=== PATIENT | male | born 1940 | race Caucasian/White ===

== ENCOUNTER 2017-06-21 18:15 | Inpatient (IN) | payer MEDICARE, BC ==
[~2017-06-21] VITALS: Ht 175.3 cm; Wt 71.9 kg
[~2017-06-21 18:15] MED LIST: ASPIRIN E.C. 8181 MG PO; FE-TABS325 MG PO; FLOMAX 0.40.4 MG/CAP PO; FOLIC ACID 40400 MCG PO; NORCO 325 MG-51 TAB PO; PRINIVIL5 MG PO; TERAZOSIN HCL5 MG PO; ULTRAM 50MG TAB50 MG PO; VITAMIN B-150 MG PO; VITAMIN C PO; VITAMIN C500 MG PO
[2017-06-21 19:08] VITALS: BP 133/86; PULSE 79; TEMP 98.4
[2017-06-21 20:04] LABS: BASO % 0.4 % (0.0-2.0); EOS # 0.1 (0.0-0.7); EOS % 0.9 % (0-4.0); GRAN # 7.6 (1.4-6.5); GRAN % 78.4 % (42.2-75.2); HEMATOCRIT 39.2 % (42.0-52.0); HEMOGLOBIN 13.3 g/dl (13.5-18.0); LYMPH # 1.2 (1.2-3.4); LYMPH % 11.9 % (20.0-51.0); MEAN CELL VOLUME 87 fl (80.0-100.0); MEAN CORPUSCULAR HEMOGLOBIN 29 pg (27.0-31.0); MEAN CORPUSCULAR HGB CONC 34 g/dl (33.0-37.0); MEAN PLATELET VOLUME 10.2 fl (7.4-10.4); MONO # 0.8 (0.1-0.6); MONO % 8.1 % (1.7-9.3); PLATELET COUNT 179 K/mm3 (130-400); RED BLOOD COUNT 4.52 M/mm3 (4.20-5.60); REDCELL DISTRIBUTION WIDTH-CV 13.2 % (11.5-14.5)
[2017-06-21 20:07] LABS: CALCIUM 8.9 mg/dL (8.4-10.2); CREATININE, serum 0.98 mg/dL (0.66-1.25); POTASSIUM 4.4 mmol/L (3.4-5.0)
[2017-06-21 22:00] VITALS: BP 117/57; PULSE 72
[2017-06-21 23:59] VITALS: BP 103/53; PULSE 68; TEMP 98.2
[2017-06-22 02:24] VITALS: BP 99/50; PULSE 62
[2017-06-22 04:09] VITALS: BP 98/48; PULSE 58; TEMP 98.5
[2017-06-22 06:20] VITALS: BP 108/67; PULSE 64
[2017-06-22 08:21] VITALS: BP 94/55; PULSE 63; TEMP 98.8
[2017-06-22 11:13] VITALS: BP 104/63; PULSE 62; TEMP 98.2
[2017-06-22] MEDS ORDERED: TYLENOL 500MG500 MG PO (14:58)
[2017-06-22] MEDS ORDERED: NORCO 325 MG-51 TAB PO (14:59)
== END 2017-06-22 15:53 | disposition home or self-care (01) | DRG 87 ==
LOC: COL.RAD 18:15 → MEDICAL 19:08
PROVIDERS: Internal Medicine
DX: S06.5X0A Traumatic subdural hemorrhage without loss of consciousness, initial encounter (principal); W20.8XXA Other cause of strike by thrown, projected or falling object, initial encounter; I10 Essential (primary) hypertension
CPT/HCPCS: 99223-AI; 99238

== ENCOUNTER → 2017-06-25 | Outpatient (CLI) | payer MEDICARE, BC ==
[~2017-06-25] MED LIST changes: +TYLENOL 500MG500 MG PO
== END ==
LOC: COL.RAD 12:41
DX: I62.00 Nontraumatic subdural hemorrhage, unspecified (principal)

== ENCOUNTER → 2017-06-29 | Outpatient (CLI) | payer MEDICARE, BC | LOC: COL.VAS 08:18 | DX: I08.3 Combined rheumatic disorders of mitral, aortic and tricuspid valves (principal) ==

== ENCOUNTER 2017-11-17 16:55 | Day surgery (SDC) | payer MEDICARE, BC ==
[~2017-11-17] VITALS: Ht 172.7 cm; Wt 71.8 kg
[2017-11-17] VITALS (7 sets, daily range): BP systolic 116–149; BP diastolic 69–89; PULSE 58–97
[2017-11-17] MEDS ORDERED: PRINIVIL5 MG PO (17:18)
[2017-11-17] MEDS ORDERED: ASPIRIN 81M81 MG/TA2 PO (17:18)
[2017-11-17] MEDS ORDERED: HYTRIN 5MG C5 MG/CAP PO (17:18)
[2017-11-17 17:29] LABS: BASO % 0.4 % (0.0-2.0); EOS # 0.1 (0.0-0.7); GRAN # 6.7 (1.4-6.5); GRAN % 82.3 % (42.2-75.2); HEMATOCRIT 40.2 % (42.0-52.0); HEMOGLOBIN 13.9 g/dl (13.5-18.0); LYMPH # 0.8 (1.2-3.4); MEAN CELL VOLUME 85 fl (80.0-100.0); MEAN CORPUSCULAR HEMOGLOBIN 30 pg (27.0-31.0); MEAN CORPUSCULAR HGB CONC 35 g/dl (33.0-37.0); MEAN PLATELET VOLUME 9.6 fl (7.4-10.4); MONO # 0.5 (0.1-0.6); MONO % 5.9 % (1.7-9.3); PLATELET COUNT 210 K/mm3 (130-400); RED BLOOD COUNT 4.71 M/mm3 (4.20-5.60); REDCELL DISTRIBUTION WIDTH-CV 13.4 % (11.5-14.5)
[2017-11-17 17:40] LABS: ALBUMIN 4.2 gm/dL (3.5-5.0); BILIRUBIN,TOTAL 0.5 mg/dL (0.0-1.0); CALCIUM 9.4 mg/dL (8.4-10.2); CREATININE, serum 0.97 mg/dL (0.66-1.25); TOTAL PROTEIN 7.1 gm/dL (6.4-8.2)
[2017-11-17] MEDS ORDERED: COLACE 100100 MG/CAP PO (19:24)
[2017-11-17] MEDS ORDERED: NORCO 325 MG-51 TAB PO (19:25)
[2017-11-17] MEDS ORDERED: MOTRIN 600600 MG/TAB PO (19:25)
[2017-11-18 00:45] VITALS: BP 116/69; PULSE 62
[2017-11-18 04:00] VITALS: BP 105/75; PULSE 94; TEMP 98
[2017-11-18 07:54] VITALS: BP 110/67; PULSE 56; TEMP 98.5
== END 2017-11-18 13:24 | disposition home or self-care (01) ==
LOC: COL.ER 16:55 → SDCO 18:29 → SURG 21:21 → SDCO 11-18 13:24
PROVIDERS: Emergency Medicine
DX: S41.112A Laceration without foreign body of left upper arm, initial encounter (principal); I10 Essential (primary) hypertension; M19.041 Primary osteoarthritis, right hand; M19.042 Primary osteoarthritis, left hand; N40.0 Benign prostatic hyperplasia without lower urinary tract symptoms; F17.220 Nicotine dependence, chewing tobacco, uncomplicated; Z85.828 Personal history of other malignant neoplasm of skin; Z96.653 Presence of artificial knee joint, bilateral; Z79.82 Long term (current) use of aspirin
CPT/HCPCS: OP; J2250; J2270; J2704; J2795; J3010; J7030; J7120

== ENCOUNTER 2019-04-05 11:23 | Inpatient (IN) | payer MEDICARE, BC ==
[~2019-04-05] VITALS: Ht 172.7 cm; Wt 70.4 kg
[~2019-04-05 11:23] MED LIST changes: +ASPIRIN 81M81 MG/TA2 PO; +COLACE 100100 MG/CAP PO; +HYTRIN 5MG C5 MG/CAP PO; +MOTRIN 600600 MG/TAB PO
[2019-05-11] VITALS (13 sets, daily range): BP systolic 111–131; BP diastolic 63–75; PULSE 52–63; TEMP 97.8–98.1
[2019-05-11] MEDS ORDERED: MOTRIN 200200 MG/TAB PO (03:51)
[2019-05-11] MEDS ORDERED: LUTEIN20 M1 PO (03:52)
[2019-05-11] MEDS ORDERED: VITAMIN C500 MG PO (03:53)
[2019-05-11] MEDS ORDERED: REFRESH PLUS 00.4 M1 OP (03:54)
[2019-05-11] MEDS ORDERED: NATURAL IRON65 MG PO (03:56)
[2019-05-11] MEDS ORDERED: EPA FISH OIL1 SGL PO (03:56)
[2019-05-11] MEDS ORDERED: FOLIC ACID 11 MG/TA1 PO (03:57)
--- NOTE | 2019-05-11 10:44 | NUR ---
Brought to room via bed by PACU staff. Opens eyes when name called out. Alert and oriented x4. Left arm in immobilizer. Patient denies pain or ability to feel or move left fingers/hand. Cap refill to left hand <3 seconds, skin pink and warm. in room with the patient. Denies needs at this time.
--- NOTE | 2019-05-11 10:54 | NUR ---
Patient has left shoulder block. Still not able to feel or move left fingers/hand.
--- NOTE | 2019-05-11 11:24 | NUR ---
Patient has left shoulder block. Still unable to feel or move left finger and hand.
--- NOTE | 2019-05-11 11:25 | NUR ---
Lying in bed with eyes closed. Opens eyes when name called out. Denies pain. Has left shoulder block so still not able to move or feel left fingers/hand. Patient falls back asleep. in room with the patient.
--- NOTE | 2019-05-11 11:56 | NUR ---
Resting in bed with eyes closed. No signs or symptoms of discomfort noted. Left arm remains in immobilizer. Has left shoudler block so still not able to feel or move left fingers or hand.
--- NOTE | 2019-05-11 13:00 | NUR ---
Lying in bed with eyes closed. Resp even and unlabored. No signs or symptoms of discomfort noted.
--- NOTE | 2019-05-11 13:31 | NUR ---
Sitting up in bed reading newspaper. Ate soup for lunch. Denies nausea or pain. Has left shoulder block so still not able to feel or move left hand or fingers. Patient denies needs at this time.
--- NOTE | 2019-05-11 13:58 | NUR ---
Initial visit; Patient thanked Staff Certified Nurse Midwife for looking in on him and offering spiritual care, also letting him know he will be offered Holy Communion while he is a patient at [facility].
--- NOTE | 2019-05-11 14:38 | NUR ---
Lying in bed with eyes open. Denies pain. No feeling in left hand or movement due to shoulder block. Patient denies needs at this time.
--- NOTE | 2019-05-11 17:16 | NUR ---
Staff Cytotechnologist met with patient to discuss discharge planning. Patient lives in [place] with his , Esther (ph#[phone]). Patient sees Dr. Ashton for primary care and obtains medications from [facility]. Patient reports he checks his blood pressure at home but other than that does not use any DME. Patient has Advance Directives completed and located in EMR. Patient plans to return home upon discharge with his providing transportation. No additional concerns at this time.
--- NOTE | 2019-05-11 18:09 | NUR ---
Lying in bed with eyes open. Denies pain. CMS intact to left arm. Unable to feel or move fingers/hand due to left shoulder block. Left arm in immobilizer sling. Dressing to left shoulder CDI. Patient denies further needs.
[2019-05-12 00:21] VITALS: BP 104/63; PULSE 54; TEMP 97.7
--- NOTE | 2019-05-12 02:47 | NUR ---
Patient doing well tonight. started to regain feeling in arm and is able to move fingers and squeeze hand. c/o moderate pain, prn ultram and norco given for pain. aquacell to L shoulder CDI. sling in place. patient has been ambulating to bathroom independently throughout night. INT to R FA flushed and patent. took scheduled medications without issue. lisinopril given HS and put on hold acknowledge to be switched by pharmacy for night time schedule. no further needs at this time. will continue to monitor.
[2019-05-12 04:30] VITALS: BP 111/67; PULSE 61; TEMP 97.3
[2019-05-12 07:19] LABS: HEMOGLOBIN 11.8 g/dl (13.5-18.0)
[2019-05-12 07:20] LABS: HEMATOCRIT 34.8 % (42.0-52.0)
[2019-05-12 07:59] VITALS: BP 107/75; PULSE 75; TEMP 97.8
--- NOTE | 2019-05-12 08:00 | NUR ---
PATIENT IS A&O. VSS. PATIENT REPORTS PAIN IN LEFT SHOULDER RATED AT 5/10. GAVE PRN NORCO, ONE TAB WITH AM MEDS. HEAD TO TWO WNL. MARIANNA HALEY IS CD&I WITH ABDUCTOR SLING INPLACE. BREAKFAST TRAY AT BEDSIDE. NO OTHER NEEDS.
[2019-05-12 11:26] VITALS: BP 109/57; PULSE 51; TEMP 97.9
--- NOTE | 2019-05-12 12:45 | NUR ---
PATIENT DENIED NEED FOR PAIN MEDS BEFORE AFTERNOON THERAPY. PATIENT RESTING UP IN BED WITH NO NEEDS.
[2019-05-12] MEDS ORDERED: ASPI325T6 PO (12:58)
[2019-05-12] MEDS ORDERED: NORCO 325 MG-7.1 TAB PO (12:59)
[2019-05-12] MEDS ORDERED: ULTRAM 50MG TAB50 MG PO (12:59)
[2019-05-12] MEDS ORDERED: SENNA-S 50 MG-81 TAB PO (13:00)
--- NOTE | 2019-05-12 16:40 | NUR ---
PATIENT DISCHARGING HOME VIA WC TO PERSONAL VEHICLE WITH . GAVE DISCHARGE INSTRUCTIONS, PRESCRIPTIONS & FOLLOW UP APTS. ANSWERED ALL QUESTIONS/CONCERNS. DC'D IV. PATIENT GETTING DRESSED AND WILL CALL FOR WC.
== END 2019-05-12 16:43 | disposition home or self-care (01) | DRG 483 ==
LOC: JCC 05-11 05:16
PROVIDERS: ADMIT Orthopaedic Surgery
PROC: 0RRK0JZ Replacement of Left Shoulder Joint with Synthetic Substitute, Open Approach (ICD-10-PCS; principal; 2019-05-11 07:30)
DX: M19.012 Primary osteoarthritis, left shoulder (principal); I10 Essential (primary) hypertension; Z96.653 Presence of artificial knee joint, bilateral
CPT/HCPCS: A4619; A9284; C1713; C1776; J0690; J1100; J1885; J2250; J2405; J2704; J3010; J7120

== ENCOUNTER → 2020-09-22 | Outpatient (CLI) | payer MEDICARE, BC ==
[~2020-09-22] MED LIST changes: +ASPI325T6 PO; +EPA FISH OIL1 SGL PO; +FOLIC ACID 11 MG/TA1 PO; +LUTEIN20 M1 PO; +MOTRIN 200200 MG/TAB PO; +NATURAL IRON65 MG PO; +NORCO 325 MG-7.1 TAB PO; +REFRESH PLUS 00.4 M1 OP; +SENNA-S 50 MG-81 TAB PO
[2020-09-22 09:12] LABS: HEMATOCRIT 43.2 % (42.0-52.0); HEMOGLOBIN 14.5 g/dl (13.5-18.0); MEAN CELL VOLUME 87 fl (80.0-100.0); MEAN CORPUSCULAR HEMOGLOBIN 29 pg (27.0-31.0); MEAN CORPUSCULAR HGB CONC 34 g/dl (33.0-37.0); PLATELET COUNT 184 K/mm3 (130-400); RED BLOOD COUNT 4.97 M/mm3 (4.20-5.60); REDCELL DISTRIBUTION WIDTH-CV 13.5 % (11.5-14.5)
[2020-09-22 09:33] LABS: ALANINE AMINOTRANSFERASE 17 U/L (4-49); ALKALINE PHOSPHATASE 73 U/L (50-136); ANION GAP 8 mmol/L (7-16); AST,SGOT 22 U/L (15-37); BILIRUBIN,TOTAL 0.4 mg/dL (0.0-1.0); BLOOD UREA NITROGEN 19 mg/dL (9-20); CALCIUM 9.7 mg/dL (8.4-10.2); CARBON DIOXIDE 23 mmol/L (22-30); CHLORIDE 108 mmol/L (98-107); CREATININE, serum 0.91 (0.66-1.25); GLUCOSE 95 mg/dL (74-106); POTASSIUM 4.3 mmol/L (3.4-5.0); SODIUM 139 mmol/L (137-145); TOTAL PROTEIN 6.8 gm/dL (6.4-8.2)
[2020-09-22 09:46] LABS: TROPONIN-I < 0.012 ng/mL (0.000-0.035)
== END ==
LOC: COL.LAB 08:45
PROVIDERS: Internal Medicine
DX: I49.9 Cardiac arrhythmia, unspecified (principal)

== ENCOUNTER 2022-07-28 08:13 | Observation (INO) | payer MEDICARE, BC ==
[~2022-07-28] VITALS: Wt 69.1 kg
[2022-07-28 10:26] VITALS: BP 150/92; PULSE 59; TEMP 97.5
[2022-07-28 11:02] LABS: BASO % 0.6 % (0.0-2.0); EOS # 0.1 K/mm3 (0.0-0.7); EOS % 1.4 % (0.0-4.0); GRAN # 4.7 K/mm3 (1.4-6.5); GRAN % 71.2 % (42.2-75.2); HEMATOCRIT 43.1 % (42.0-52.0); HEMOGLOBIN 15.2 g/dl (13.5-18.0); LYMPH # 1.2 K/mm3 (1.2-3.4); LYMPH % 18.6 % (20.0-51.0); MEAN CELL VOLUME 84 fl (80.0-100.0); MEAN CORPUSCULAR HEMOGLOBIN 30 pg (27-31); MEAN CORPUSCULAR HGB CONC 35 g/dl (33.0-37.0); MEAN PLATELET VOLUME 9.9 fl (7.4-10.4); MONO # 0.5 K/mm3 (0.1-0.6); MONO % 7.9 % (1.7-9.3); PLATELET COUNT 215 K/mm3 (130-400); RED BLOOD COUNT 5.15 M/mm3 (4.20-5.60); REDCELL DISTRIBUTION WIDTH-CV 12.9 % (11.5-14.5)
[2022-07-28 11:16] LABS: C-REACTIVE PROTEIN 0.07 mg/dL (0.00-0.50); CALCIUM 9.4 mg/dL (8.4-10.2); CREATININE, serum 1.02 mg/dL (0.72-1.25); MAGNESIUM 1.8 mg/dL (1.6-2.6); PHOSPHOROUS 2.8 mg/dL (2.3-4.7); POTASSIUM 4.2 mmol/L (3.5-4.5)
--- NOTE | 2022-07-28 11:27 | NUR ---
1000-REBECCA PERRY AND FREDERIC PERRY NOTIFIED OF PTS ARRIVAL. 1125- NOTIFIED OF ELEVATED D-DIMER.
[2022-07-28 16:21] VITALS: BP 157/92; PULSE 55; TEMP 98.5
[2022-07-28 19:28] VITALS: BP 157/93; PULSE 65; TEMP 98
--- NOTE | 2022-07-28 22:31 | NUR ---
Patient assessed around 1999. Alert and oriented, and able to make needs known. Denies having pain and discomfort. Peripheral IV to right AC. IV fluids running per orders. Denies SOB and dyspnea. LS CTA. HRR. Telemetry normal sinus, has been tari 50s. BSAx4. Does have constipation and given senokot per orders. Went to give other medications, but patient took home doses of both Hytrin and Zestril already. Patient voices no questions, needs, or concerns at this time. In bed with call light within reach.
[2022-07-29 00:09] VITALS: BP 134/70; PULSE 58; TEMP 98.2
[2022-07-29 04:13] VITALS: BP 102/63; PULSE 54; TEMP 97.6
--- NOTE | 2022-07-29 05:10 | NUR ---
Continues on IV fluids. Denies having pain and discomfort. Denies SOB and dyspnea. Patient's HR did drop into the 40s while sleeping during the night. VICKY Ribeiro notified, no new orders. Voices no further questions, needs, or concerns at this time. In bed with call light within reach.
[2022-07-29 07:18] VITALS: BP 131/71; PULSE 56; TEMP 97.9
[2022-07-29] MEDS ORDERED: MIRALAX PA17 GM/Dose PO (09:24)
--- NOTE | 2022-07-29 10:15 | NUR ---
ALL DISCHARGE INSTRUCTIONS REVIEWED WITH PT NO QUESTIONS OR CONCERNS AT THIS TIME. CARDIOLOGY WILL CALL PT WITH FOLLOW UP APPT TIME FOR STRESS TEST. INT IV WAS DISCONTINUED. PT ESCORTED OUT BT PCT. ALL PERSONAL BELONGSINGS TAKEN WITH PT.
== END 2022-07-29 10:10 | disposition home or self-care (01) ==
LOC: MEDICAL 08:13
PROVIDERS: ADMIT Internal Medicine
DX: R06.02 Shortness of breath (principal); I11.9 Hypertensive heart disease without heart failure; N40.0 Benign prostatic hyperplasia without lower urinary tract symptoms; K59.00 Constipation, unspecified; I34.0 Nonrheumatic mitral (valve) insufficiency; F17.220 Nicotine dependence, chewing tobacco, uncomplicated; I71.20 Thoracic aortic aneurysm, without rupture, unspecified; Z79.899 Other long term (current) drug therapy; Z20.822 Contact with and (suspected) exposure to COVID-19
CPT/HCPCS: G0378; G0379; Q9967

== ENCOUNTER 2023-11-21 14:28 | Inpatient (IN) | payer MEDICARE, BC ==
[~2023-11-21] VITALS: Ht 172.7 cm; Wt 72.2 kg
[2023-11-21 13:00] VITALS: BP_SYST 156
[~2023-11-21 14:28] MED LIST changes: +Acetaminophen 500 MG TAB PO SCH; +Docusate Sodium 100 MG CAP PO PRN; +MIRALAX PA17 GM/Dose PO; +Polyethylene Glycol 3350 17 GM PDS PO PRN; +Sennosides/Docusate 8.6-50 MG TAB PO PRN; +traMADol 50 MG TAB PO PRN
--- NOTE | 2023-11-21 14:45 | NUR ---
pt admitted to room, at bedside. vss. med rec and admission assessment complete. pt ambulated to bed x2 assist due to pain. scheduled tylenol given per emar. pt reports tylenol and tramadol has been providing pain relief. x2 lidocaine patches to right hip region from [facility]. oriented pt to room. call light in reach. no needs at this time.
[2023-11-21] MEDS ORDERED: NORVASC2.5 MG PO (14:54)
[2023-11-21] MEDS ORDERED: TYLENOL 325MG325 MG PO (15:49)
[2023-11-21] MEDS ORDERED: NEURONTIN100 MG/CAP PO (15:50)
[2023-11-21] MEDS ORDERED: ULTRAM 50MG TAB50 MG PO (15:51)
[2023-11-21] MEDS ORDERED: FLEXERIL 1010 MG/TAB PO (15:52)
[2023-11-21] MEDS ORDERED: FISH OIL 500 M1 EAC1 PO (15:53)
[2023-11-21] MEDS ORDERED: VITAMIN C500 MG PO (15:56)
[2023-11-21 15:57] VITALS: BP 156/88; PULSE 76; TEMP 98.5
[2023-11-21] MEDS ORDERED: Cyclobenzaprine 10 MG TAB PO PRN (16:30)
[2023-11-21] MEDS ORDERED: Ferrous Sulfate 325 MG TAB PO SCH (16:33)
[2023-11-21] MEDS ORDERED: Carboxymethylcellulose PF Ophth 0.4 ML DROPPERETTE OP PRN (16:45)
[2023-11-21 17:49] VITALS: BP_SYST 156
[2023-11-21 18:05] VITALS: BP 122/73; PULSE 85; TEMP 98.2
[2023-11-21] MEDS ORDERED: Gabapentin 100 MG CAP PO SCH (21:00)
[2023-11-21 22:10] VITALS: BP_SYST 122
--- NOTE | 2023-11-21 22:22 | NUR ---
PATIENT IS RESTING IN BED WATCHING TV. ASSISTED TO RESTROOM WITH WALKER THEN TO SINK TO BRUSH TEETH. RETURNED TO BED, DENIES ANY FURTHER NEEDS AT THIS TIME. CALL LIGHT IS WITHIN REACH. BED IS LOCKED AND IN LOW POSITION.
[2023-11-22 05:32] VITALS: BP 145/81; PULSE 75; TEMP 98.2
[2023-11-22 07:05] VITALS: BP_SYST 145
--- NOTE | 2023-11-22 08:50 | NUR ---
pt a&ox4 resting in bed. vss. meds given and assessment complete. pt reports pain increased with ambulation to bathroom. ice pack given and repositioned in bed. pt had decreased appetite for breakfast. pt denies needs at this time. call light in reach.
[2023-11-22] MEDS ORDERED: amLODIPine 5 MG TAB PO SCH (09:00)
[2023-11-22] MEDS ORDERED: Ascorbic Acid 500 MG TAB PO SCH (09:00)
[2023-11-22] MEDS ORDERED: Omega-3 Fatty Acid Esters (OTC) 1,000 MG CAP PO SCH (09:00)
[2023-11-22] MEDS ORDERED: Multivitamin TAB PO SCH (09:00)
[2023-11-22] MEDS ORDERED: Lutein 20 MG CAP PO SCH (09:00)
--- NOTE | 2023-11-22 11:59 | NUR ---
SW met with patient to complete intake. Patient provides he resides in [place], [place] with spouse Esther Sherman [phone] who is also appointed as DPOA/HC, alt. Dr. Benedict Sherman. Patient provides he did not utilize DME prior to admission, but provides he will likely need one upon discharge. PCP is Dr. Moser, and pharmacy is [facility] patient states. Patient provides his plan will be return to his him in [place] upon discharge. SW will continue to follow. Discharge plan: home (may need DME)
[2023-11-22 18:25] VITALS: BP 146/80; PULSE 94; TEMP 98.4
[2023-11-22 19:00] VITALS: BP_SYST 146
--- NOTE | 2023-11-22 21:00 | NUR ---
PT IN BED, IS ALERT AND ORIENTED X4. DENIES PAIN AT THIS TIME. TAKES HS MEDS WITHOUT PROBLEM. SCATTERED BRUISING TO BODY NOTED. URINAL AT BEDSIDE, BED ALARM ON.
--- NOTE | 2023-11-22 23:12 | NUR ---
Pt voids per urinal 300cc yellow urine. SCDS placed on pt after repositioning in bed.
--- NOTE | 2023-11-23 05:54 | NUR ---
ASSISTED TO BATHROOM FOR BM. HAS LARGE HARD STOOL. BACK TO BED, GIVEN SCHEDULED ES TYLENOL 1000MG, TRAMADOL 50MG AND FLEXERIL 10MG FOR PAIN IN RT LEG/PELVIS AREA. VOIDING PER URINAL WITHOUT PROBLEM. GAIT SLOW AND STEADY WITH WALKER AND ONE ASSIST. BED ALARM ON.
[2023-11-23 06:00] VITALS: BP 143/78; PULSE 69; TEMP 97.8
[2023-11-23 07:09] LABS: BASO % 0.6 % (0.0-2.0); EOS # 0.3 K/mm3 (0.0-0.7); EOS % 4.5 % (0.0-4.0); GRAN # 4.6 K/mm3 (1.4-6.5); GRAN % 69.4 % (42.2-75.2); LYMPH % 15.8 % (20.0-51.0); MEAN CELL VOLUME 85 fl (80.0-100.0); MEAN CORPUSCULAR HGB CONC 34 g/dl (33.0-37.0); MEAN PLATELET VOLUME 9.9 fl (7.4-10.4); MONO # 0.6 K/mm3 (0.1-0.6); MONO % 8.9 % (1.7-9.3); PLATELET COUNT 176 K/mm3 (130-400); RED BLOOD COUNT 2.96 M/mm3 (4.20-5.60); REDCELL DISTRIBUTION WIDTH-CV 14.3 % (11.5-14.5)
[2023-11-23 07:10] LABS: HEMATOCRIT 25.1 % (42.0-52.0); HEMOGLOBIN 8.5 g/dl (13.5-18.0); MEAN CORPUSCULAR HEMOGLOBIN 29 pg (27-31)
[2023-11-23 07:27] LABS: CALCIUM 8.4 mg/dL (8.4-10.2); CREATININE, serum 0.82 mg/dL (0.72-1.25); MAGNESIUM 1.7 mg/dL (1.6-2.6); POTASSIUM 4.2 mEq/L (3.5-4.5)
[2023-11-23 08:19] VITALS: BP_SYST 143
[2023-11-23] MEDS ORDERED: Cyclobenzaprine 10 MG TAB PO SCH (09:00)
[2023-11-23] MEDS ORDERED: Lidocaine 4% Topical Patch TP SCH (09:08)
--- NOTE | 2023-11-23 09:09 | NUR ---
PT WAS RESTING IN BED. ASSESSMENT COMPLETED EARLIER TODAY. NO CONCERNS AT THIS TIME. ALERT AND ORIENTED. CALL LIGHT WITHIN REACH. BREAKFAST ORDERED FOR PT.
[2023-11-23] MEDS ORDERED: Methocarbamol 750 MG TAB PO ONE (09:15)
--- NOTE | 2023-11-23 14:25 | NUR ---
SW met with patient to introduce myself. Discussed scheduling family meeting for Thursday at 1015. Patient agreeable and stated he would communicate this to his . Meeting time written on white board in patient's room to remind him. Director Ricarda notified of scheduled meeting. KYM attempted to call patient's without success. Discharge plan: re-eval
[2023-11-23 17:58] VITALS: BP 162/89; PULSE 89; TEMP 98
--- NOTE | 2023-11-23 18:19 | NUR ---
PT IS SITTING IN BED EATING, HE HAS HAD SIGNIFICANT PAIN WHILE AMBULATING AND REPOSITIONING. HIS CALL LIGHT IS WITHIN REACH ALL NEEDS MET AT THIS TIME.
[2023-11-23 18:30] VITALS: BP_SYST 162
--- NOTE | 2023-11-23 19:00 | NUR ---
BEDSIDE SHIFT REPORT RECIEVED AT THIS TIME.
--- NOTE | 2023-11-23 20:19 | NUR ---
SHIFT ASSESSMENT COMPLETED AT THIS TIME. PT A&OX4. PT REPORTS 4/10 PAIN BUT DENIES NAUSEA AND SOB. SCHEDULDED TYLENOL ADMINISTERED WITH OHER SCHEDULDED MEDICATIONS WITHOUT COMPLICATIONS. FALL PRECAUTIONS IN PLACE. CALL LIGHT WITHIN REACH. NO FURTHER NEEDS AT THIS TIME.
[2023-11-24 05:37] VITALS: BP 144/74; PULSE 69; TEMP 98.2
[2023-11-24 07:34] LABS: HEMATOCRIT 25.9 % (42.0-52.0); HEMOGLOBIN 8.6 g/dl (13.5-18.0)
--- NOTE | 2023-11-24 08:15 | NUR ---
PT ASSESSMENT COMPLETED. HE IS ALERT AND ORIENTED. HE STATES THAT HE SLEPT WELL. HIS PAIN IS CURRENTLY A 4/10- INCREASES WITH MOVEMENT. HE WANTS HIS LIDOCAIN PATCHES APPLIED WHEN HE IS STANDING LATER TODAY. MEDICATIONS ADMINISTERED PER EMAR. CALL LIGHT WITHIN REACH. ALL NEEDS MET AT THIS TIME.
[2023-11-24 08:18] VITALS: BP_SYST 144
[2023-11-24] MEDS ORDERED: traMADol 50 MG TAB PO PRN (11:30)
--- NOTE | 2023-11-24 12:54 | NUR ---
PT GOT DONE EATING AND THIS NURSE TOOK HIS TRAY TO PUT IT UP. HE AMBULTED TO THE BED FROM THE CHAIR. HE STATED THAT HE IS "GOING TO TRY AND REST BEFORE THERAPY". CALL LIGHT WITHIN REACH ALL OTHER NEEDS MET AT THIS TIME.
--- NOTE | 2023-11-24 13:52 | NUR ---
SW attempted to call patient's again to notify of family meeting scheduled for tomorrow morning at 1015. SW met briefly with patient at bedside who stated "I completely forgot to tell her about that." SW left message for to notify of meeting time tomorrow. Discharge plan: re-eval
[2023-11-24 17:23] VITALS: BP 160/83; PULSE 76; TEMP 97.9
--- NOTE | 2023-11-24 17:33 | NUR ---
PT IS LAYING IN BED ASLEEP, HE IS ABLE TO WAKE UP EASILY. HIS FOOD IS CURRENTLY ON THE TABLE BESIDE HIM. HE HAS BEEN EXHAUSTED AFTER THERAPY AND TRIES TO NAP WHEN HE CAN. HE HAS LOTS OF PAIN WHILE AMBULATING. CALL CHATA WITHIN REACH
[2023-11-24 19:00] VITALS: BP_SYST 160
--- NOTE | 2023-11-24 20:11 | NUR ---
SHIFT ASSESSMENT COMPLETED AT THIS TIME. PT REPORTS 3/10 DISCOMFORT. BUT DENIES NAUSEA AND SOB. PT A&OX4. SCHEDULED EVENING MEDICATIONS ADMINISTERED AT THIS TIME WITHOUT COMPLICATIONS. FALL PRECAUTIONS IN PLACE. NO FURTHER NEEDS AT THIS TIME.
[2023-11-25 05:34] VITALS: BP 155/75; PULSE 73; TEMP 98.7
[2023-11-25 08:21] VITALS: BP_SYST 155
--- NOTE | 2023-11-25 14:32 | NUR ---
SW attended team conference and family meeting with treatment team and on speaker phone. Discussed patient's progress and potential needs for discharge. Discharge date not set at this time. SW met with patient to provide copy of team conference notes and discuss discharge planning. Patient was provided with Medicare.gov list of home health providers for patient and to review. Discharge plan: re-eval
[2023-11-25 18:34] VITALS: BP 149/81; PULSE 74; TEMP 98
[2023-11-25 19:00] VITALS: BP_SYST 149
--- NOTE | 2023-11-25 22:05 | NUR ---
Pt lying supine in bed w/ eyes closed upon this nurse's entry to room. Arouses w/ ease. A&Ox4. RR even and unlabored. No acute distress noted. Scheduled HS medications administered PO w/o difficulty. Shift assessment performed. Pt continues to be WBAT and utilizes walker w/ gait belt along w/ x1 assistance. Dark purple ecchymosis noted to right lower back and genitalia. Pt denies any loss of sensation. Pulses present and palpable. Pt denies any needs or concerns. Call light in reach. Care ongoing.
[2023-11-26 06:00] VITALS: BP 131/77; PULSE 65; TEMP 97.6
[2023-11-26 07:21] VITALS: BP_SYST 131
--- NOTE | 2023-11-26 08:50 | NUR ---
Pt. sitting up in bed. Pt. is A&OX3, assessment complete. Pt. reports pain to back and pelvis at a 4 on pain scale. Pt. denies need for pain meds at this time. Lidocaine patches applied to lower back area. Pt. then assisted to the bathroom with 1 assist, gait belt and walker. Pt. has reported having dificulty urinating. Pt. reports that he has has problems in the past and has BPH. Dr. Camacho notified. Pt. was able to urinate then bladderstanned. Pt. has 300 mls residual. Pt. then down to Therapy.
[2023-11-26] MEDS ORDERED: Polyethylene Glycol 3350 17 GM PDS PO SCH (09:28)
--- NOTE | 2023-11-26 10:00 | NUR ---
Pt. reported pain at a 5-6 on pain scale to GILDARDO Ibrahim. She then notified this nurse. Pt. given pain meds per mar. Pt. was also able to urinate while down in therapy. Pt. reports having relief. Pt. denies further needs.
[2023-11-26 16:57] VITALS: BP 120/79; PULSE 82; TEMP 98.5
[2023-11-26 19:00] VITALS: BP_SYST 120
--- NOTE | 2023-11-26 20:30 | NUR ---
UPON SHIFT ASSESSMENT, JUAN C WAS AWAKE IN BED AND AXO X4. HE C/O OF CONSTIPATION FOR "A COUPLE OF DAYS." PRN SENE[place]OT UTABS GIVEN. BOWEL SOUNDS ARE HYPOACTIVE IN ALL QUADRANTS, ABDOMEN IS SOFT. VS ARE WNL AND PATIENT C/O OF 4/10 PELVIC AND BACK PAIN. CALL LIGHT WITHIN REACH AND BED ALARM ON.
--- NOTE | 2023-11-26 22:48 | NUR ---
AMBULATED PATIENT TO RESTROOM. GOOD EFFORT WAS USED, HOWEVER, BREWER WAS NOTED WITH FACIAL GRIMACING. ASKED PATIENT TO RATE PAIN AND HE STATED, "IT'S BETTER." WILL CONTINUE TO MONITOR.
--- NOTE | 2023-11-27 01:35 | NUR ---
PATIENT C/O 8/10 PELVIC AND LOWER BACK PAIN. TRAMADOL PRN ADMINISTERED.
--- NOTE | 2023-11-27 02:42 | NUR ---
PATIENT TRIGGERED BED ALARM. ENTERED PATIENT ROOM. JUAN C WAS CONFUSED ASKED ME IF I NEEDED TO LOOK FOR "EMERALD-RT". REALIZING HE WAS STILL HALF-ASLEEP, PATIENT WAS EASILY REORIENTED AND AMBULATED TO RESTROOM-VOIDING YELLOW CLEAR URINE. DANIELLA NOTED-PATIENT WOB RECOVERED UPON RETURN TO BED. EDUCATED PATIENT ON USE OF CALL LIGHT. BED ALARM ON.
[2023-11-27 05:43] VITALS: BP 144/84; PULSE 71; TEMP 97.5
[2023-11-27 06:38] LABS: BASO % 0.3 % (0.0-2.0); EOS # 0.3 K/mm3 (0.0-0.7); GRAN # 4.1 K/mm3 (1.4-6.5); GRAN % 66.8 % (42.2-75.2); LYMPH % 16.4 % (20.0-51.0); MEAN CELL VOLUME 88 fl (80.0-100.0); MEAN CORPUSCULAR HGB CONC 34 g/dl (33.0-37.0); MEAN PLATELET VOLUME 9.7 fl (7.4-10.4); MONO # 0.7 K/mm3 (0.1-0.6); PLATELET COUNT 296 K/mm3 (130-400); RED BLOOD COUNT 2.92 M/mm3 (4.20-5.60); REDCELL DISTRIBUTION WIDTH-CV 15.2 % (11.5-14.5)
[2023-11-27 06:46] LABS: HEMATOCRIT 25.7 % (42.0-52.0); HEMOGLOBIN 8.6 g/dl (13.5-18.0); MEAN CORPUSCULAR HEMOGLOBIN 29 pg (27-31)
[2023-11-27 07:00] VITALS: BP_SYST 144
[2023-11-27 07:09] LABS: CREATININE, serum 0.78 mg/dL (0.72-1.25); POTASSIUM 4.1 mEq/L (3.5-4.5)
--- NOTE | 2023-11-27 08:00 | NUR ---
PATIENT A&O X4. VSS. PATIENT IS ASSIST X1 WITH WALKER AND GAIT BELT. PRN PAIN MEDICATIONS ADMINISTERED FOR C/O PAIN. NO C/O N/V. MORNING MEDICATIONS ADMINISTERED AND SHIFT ASSESSMENT COMPLETE. PATIENT AWARE OF THERAPY SCHEDULE FOR THE DAY. NO FURTHER NEEDS AT THIS TIME. CALL LIGHT WITHIN REACH.
--- NOTE | 2023-11-27 13:44 | NUR ---
SW met with pt and check-in for any needs. None reported. Discharge Plan: re-eval
[2023-11-27 17:06] VITALS: BP 156/81; PULSE 74; TEMP 97.5
[2023-11-27 19:00] VITALS: BP_SYST 156
[2023-11-28 04:52] VITALS: BP 153/80; PULSE 66; TEMP 97.5
[2023-11-28 07:01] VITALS: BP_SYST 153
--- NOTE | 2023-11-28 09:27 | NUR ---
PT RESTING IN BED, ALERT AND ORIENTEDX4 WITH A LITTLE CONFUSION UPON WAKING UP. RATES PAIN 3/10 IN THE BACK AND RIBS. ASSESSED PT. PUT LIDOCAINE PATCHES ON BACK. GAVE MORNING MEDS. NO OTHER COMPLAINTS AT THIS TIME. CALL LIGHT WITHIN REACH.
--- NOTE | 2023-11-28 14:55 | NUR ---
Data: RN contacted Instructor Kindergarten because Patient and want communion tomorrow. Assessment: Patient and are Mandaeism. Communion is an important part of their spiritual health. Plan of Care: Instructor Kindergarten explained the eucharist team provides communion on Sundays and Tuesdays. Instructor Kindergarten also called [facility] and left voicemail making a specific request for communion for this Patient. Chaplains will remain available as needed/requested while Patient is admitted to this hospital.
[2023-11-28 17:13] VITALS: BP 150/83; PULSE 71; TEMP 97.5
[2023-11-28] MEDS ORDERED: traMADol 50 MG TAB PO PRN (17:15)
[2023-11-28 19:05] VITALS: BP_SYST 150
[2023-11-29 05:37] VITALS: BP 140/80; PULSE 66; TEMP 97.5
[2023-11-29 06:35] VITALS: BP_SYST 140
--- NOTE | 2023-11-29 07:55 | NUR ---
PT RESTING IN BED, ALERT AND ORIENTEDX4. NOT CONFUSED YESTERDAY. NO COMPLAINTS OF PAIN AT THIS TIME. ASSESSED PT. BRUISING STILL PRESENT. PUT LIDOCAIN PATCHES ON BACK. SAT PT UP TO EAT BREAKFAST. GAVE MORNING MEDS. NO OTHER COMPLAINTS AT THIS TIME. CALL LIGHT ALEXIS SCHULTE.
[2023-11-29 17:46] VITALS: BP 137/75; PULSE 83; TEMP 97.7
[2023-11-29 18:45] VITALS: BP_SYST 137
[2023-11-30 05:53] VITALS: BP 139/81; PULSE 74; TEMP 98.1
[2023-11-30 06:35] LABS: HEMATOCRIT 29.6 % (42.0-52.0)
[2023-11-30 08:37] VITALS: BP_SYST 139
[2023-11-30 17:06] VITALS: BP 135/80; PULSE 76; TEMP 98.1
[2023-11-30] MEDS ORDERED: CALCITONIN SALMON NS SCH (18:00)
[2023-11-30 19:21] VITALS: BP_SYST 135
--- NOTE | 2023-11-30 19:21 | NUR ---
RECEIVED CHANGE OF SHIFT REPORT FROM DAY SHIFT NURSE. PATIENT UP IN CHAIR DURING REPORT WITH NO NEEDS REPORTED.
--- NOTE | 2023-11-30 20:00 | NUR ---
DECREASED STRENGTH TO RLE DUE TO PAIN WITH MOVEMENT. DENIES CHEST PAIN,SHORTNESS OF BREATHE, NAUSEA, NUMBNESS/TINGLING TO EXTREMITIES AT THIS TIME. UP WITH ASSIST X1/GAIT BELT AND FWW. DENIES PAIN WITH MOVEMENT AT THIS TIME.
--- NOTE | 2023-12-01 03:46 | NUR ---
REPORTS FEELING ABD FULLNESS, DENIES NAUSEA OR PAIN AT THIS TIME, SEE MAR FOR MEDS GIVEN. PATIENT AMBULATED TO BATHROOM WITH X1 ASST/GB/FWW "TO SIT FOR A LITTLE BIT". NO OTHER NEEDS REPORTED AT THIS TIME.
[2023-12-01 05:45] VITALS: BP 129/78; PULSE 65; TEMP 97.5
--- NOTE | 2023-12-01 07:16 | NUR ---
CHANGE OF SHIFT REPORT GIVEN TO DAY SHIFT NURSEYUMIKO.
[2023-12-01 09:26] VITALS: BP_SYST 129
--- NOTE | 2023-12-01 10:55 | NUR ---
PT IS SITTING IN BED. ASSESSMENT COMPLETED EARLIER THIS MORNING. HE STATES THAT HE HAS SOME CRAMPING IN HIS STOMACH, STATES "HE NEEDS TO USE THE BATHROOM". MEDICATIONS ADMINISTERED PER EMAR. PT DID NOT WANT TO EAT THIS MORNING, BREAKFAST WAS ORDERED FOR HIM ANYWAY. HE DID NOT EAT ANYTHING- STATES THAT HE "CANNOT EAT". CALL LIGHT IS WITHIN REACH AND NO OTHER COMPLAINTS AT THIS TIME.
--- NOTE | 2023-12-01 11:06 | NUR ---
PATIENT ALERT AND ORIENTE X4. VSS. PATIENT HERE FOR PELVIC FX. PATIENT REPORTS PAIN, MEDICATION GIVEN WITH AM MEDS. PATIENT'S ONLY CONCERN IS BM. PATIENT OFFERED MIRALAX AND COLACE. NO FURTHER NEEDS. PATIENT IN BED WAITING ON BREAKFAST TO ARRIVE. CALL LIGHT IN REACH. BED ALARM ON.
--- NOTE | 2023-12-01 12:51 | NUR ---
SW met briefly with patient to inquire about home health choices. Patient states he has been told that he may be able to discharge sometime this week. Patient unsure what HH agency they discussed. KYM called patient's to inquire about HH choice. She states they would prefer referral to [facility] out of [place]. Referral faxed. Discharge plan: Home with HH
[2023-12-01 16:54] VITALS: BP 146/79; PULSE 69; TEMP 97.7
[2023-12-01 20:45] VITALS: BP_SYST 146
[2023-12-01] MEDS ORDERED: Sennosides/Docusate 8.6-50 MG TAB PO SCH (21:00)
--- NOTE | 2023-12-01 21:35 | NUR ---
Patient assessed around 2044. Alert and oriented, and able to make needs known. Reports level 4 pain. Given PRN Tramadol as requested. Denies SOB and dyspnea. LS CTA. HRR. BSAx4. No edema. Voices no questions, needs, or concerns at this time. In bed with call light within reach. Bed alarm on.
[2023-12-02 05:32] VITALS: BP 131/70; PULSE 64; TEMP 97.7
--- NOTE | 2023-12-02 06:31 | NUR ---
Patient reports pain is much better this morning. Voices no questions, needs, or concerns at this time. In bed with call light within reach. Bed alarm on.
[2023-12-02 07:00] VITALS: BP_SYST 131
--- NOTE | 2023-12-02 08:00 | NUR ---
PATIENT A&O X4. VSS. C/O PAIN IN LOWER BACK - PRN PAIN MEDICATION GIVEN. NO C/O N/V. PATIENT IS ASSIST X1 WITH WALKER AND GAIT BELT. PATIENT EATING BREAKFAST. PATIENT EXPRESSED THAT HE HAD SOME BAD NIGHTMARES LAST NIGHT AND WAS NOT ABLE TO SLEEP MUCH. SHIFT ASSESSMENT COMPLETE AND MORNING MEDICATIONS ADMINISTERED. NO FURTHER NEEDS AT THIS TIME. CALL LIGHT WITHIN REACH.
--- NOTE | 2023-12-02 12:33 | NUR ---
SW attended clinical team conference earlier this morning. Discussed patient's progress with therapy. Team feels patient is ready for discharge. SW updated team that HH referral was sent yesterday and discussed possible DME needed for discharge. SW will follow up with patient and this afternoon to finalize plans. Discharge plan: Home with HH
[2023-12-02 18:34] VITALS: BP 143/73; PULSE 76; TEMP 97.9
--- NOTE | 2023-12-02 19:00 | NUR ---
RECEIVED CHANGE OF SHIFT REPORT FROM DAY SHIFT NURSE.
[2023-12-02 20:00] VITALS: BP_SYST 143
--- NOTE | 2023-12-02 20:00 | NUR ---
UP WITH FWW AND GAIT BELT. DENIES CHEST PAIN/SHORTNESS OF BREATH/NAUSEA AT THIS TIME. REPORTS HAD BM TODAY. DENIES NEED FOR ADDITIONAL PAIN MEDICATION BESIDED SCHEDULED EXTRA STRENGTH TYLENOL THAT PATIENT HAS BEEN TAKING PER DOCTOR'S ORDER. DENIES PROBLEMS WITH VOIDING CURRENTLY.
[2023-12-03 05:36] VITALS: BP 127/75; PULSE 64; TEMP 97.4
--- NOTE | 2023-12-03 07:09 | NUR ---
CHANGE OF SHIFT REPORT GIVEN TO DAY SHIFT NURSESHARMIN. PATIENT DENIES ANY NEEDS AT END OF SHIFT.
[2023-12-03 07:34] VITALS: BP_SYST 127
--- NOTE | 2023-12-03 07:45 | NUR ---
pt asleep upon entry in room, easily arousable. meds given and assessment complete. vss. pt denies pain. no needs at this time. call light in reach.
--- NOTE | 2023-12-03 14:26 | NUR ---
radio survey worker met with pt to complete IM from medicare. He was agreeable and verbalized understanding when signing. Copy provided and original in chart. He expressed being happy to discharge tomorrow and his will transport him. KYM informed pt his FWW has been ordered and will be delivered to his room. KYM faxed updates to [facility]. Discharge Plan: home with HH
--- NOTE | 2023-12-03 15:51 | NUR ---
KYM received a call from pt's son, Dr. Coreaswatson Sherman requesting handicap papers for pt to get a placard. He inquired about pt's FWW order. KYM informed him that it will be delivered to pt's room and he was agreeable to this. KYM provided papers to pt's son and confirmed with [facility] that the FWW will be delivered tomorrow morning. No further needs.
[2023-12-03 17:51] VITALS: BP 127/81; PULSE 85; TEMP 98
[2023-12-03 19:00] VITALS: BP_SYST 127
--- NOTE | 2023-12-03 23:08 | NUR ---
Patient assessed around 2104. Alert and oriented, and able to make needs known. Reports pain, but does not want anything except for Acetaminophen. Encouraged to let this nurse know if he wanted Ultram later. One of patient's lidocaine patches came off around supper time, but does not want the other 2 to come off tonight, and wants them to stay on until morning. Patient voices no further questions, needs, or concerns at this time. In bed with call light within reach. Bed alarm on.
--- NOTE | 2023-12-04 05:33 | NUR ---
Patient received PRN Ultram once during the night as requested for pain. Has voiced no further questions, needs, or concerns this shift. In bed with call light within reach. Bed alarm on.
[2023-12-04 05:43] VITALS: BP 147/79; PULSE 69; TEMP 97.4
[2023-12-04 09:33] VITALS: BP_SYST 147
[2023-12-04] MEDS ORDERED: FLEXERIL 1010 MG/TAB PO (09:57)
[2023-12-04] MEDS ORDERED: FERROUS SU325 MG/TAB PO (09:57)
[2023-12-04] MEDS ORDERED: ASPIRIN E.C. 8181 MG PO (09:58)
[2023-12-04] MEDS ORDERED: SENOKOT S 50 MG1 TAB PO (09:59)
[2023-12-04] MEDS ORDERED: NEURONTIN100 MG/CAP PO (09:59)
[2023-12-04] MEDS ORDERED: ULTRAM 50MG TAB50 MG PO (10:01)
[2023-12-04] MEDS ORDERED: FORTICAL200 IU/ACT NS (10:01)
--- NOTE | 2023-12-04 11:16 | NUR ---
PATIENT ALERT AND ORIENTED X4. VSS. PATIENT HERE FOR PELVIC FRACTURE. PATIENT REPORTS MILD PAIN THIS AM, DENIES NEED FOR PAIN MEDICATION. LIDOCAINE PATCHES APPLIED TO SACRAL AREA AND LOWER BACK. AM MEDS ADMINISTERED. NO FURTHER NEEDS. CALL LIGHT IN REACH. BED ALARM ON.
--- NOTE | 2023-12-04 17:56 | NUR ---
dockworker faxed discharge orders to [facility]. Dishcarge plan: Home with home health
== END 2023-12-04 11:54 | disposition home health service (06) | DRG 560 ==
PROVIDERS: Internal Medicine; ADMIT Physical Medicine & Rehabilitation Sports Medicine
DX: S32.401D Unspecified fracture of right acetabulum, subsequent encounter for fracture with routine healing (principal); R44.0 Auditory hallucinations; S32.810D Multiple fractures of pelvis with stable disruption of pelvic ring, subsequent encounter for fracture with routine healing; S22.41XD Multiple fractures of ribs, right side, subsequent encounter for fracture with routine healing; I71.40 Abdominal aortic aneurysm, without rupture, unspecified; G89.11 Acute pain due to trauma; I10 Essential (primary) hypertension; R44.1 Visual hallucinations; D33.4 Benign neoplasm of spinal cord; N40.0 Benign prostatic hyperplasia without lower urinary tract symptoms; K59.00 Constipation, unspecified; M48.02 Spinal stenosis, cervical region; M47.812 Spondylosis without myelopathy or radiculopathy, cervical region; F51.5 Nightmare disorder; M48.04 Spinal stenosis, thoracic region; K44.9 Diaphragmatic hernia without obstruction or gangrene; D64.9 Anemia, unspecified; Z79.899 Other long term (current) drug therapy; Z79.891 Long term (current) use of opiate analgesic; V86.95XD Unspecified occupant of 3- or 4- wheeled all-terrain vehicle (ATV) injured in nontraffic accident, subsequent encounter